=== PATIENT | male | born 1990 | race Caucasian/White ===

== ENCOUNTER 2017-04-03 20:20 | Emergency (ER) | payer OTHER ==
[2017-04-03 21:12] VITALS: BP 135/91
--- NOTE | 2017-04-03 21:54 | RAD ---
INDICATION: RIGHT hand and forearm pain. Pain at base of the thumb and radial aspect of the wrist radiating to the mid shaft of the forearm. Previous ORIF. COMPARISON: August 27, 2016 TECHNIQUE: AP, lateral, and oblique views RIGHT hand. AP and lateral views RIGHT hand. REPORT: Interference screw in place at the scaphoid. No persistent scaphoid fracture cleft visible. Bone graft harvest site at the distal metaphysis of the radius noted. Negative for acute fracture or articular malalignment at the wrist. Small chronic metallic foreign body within the soft tissues at the dorsal radial margin of the thumb at the level of the proximal phalanx. Normal articular alignment and preserved joint spaces at the hand. Negative for fracture. Mild soft tissue swelling at the second and third fingers. IMPRESSION: 1. Postsurgical change of ORIF at the scaphoid. No persistent fracture cleft evident. 2. No acute radiographic abnormality at the wrist or hand. 3. No significant arthropathic change evident at the wrist or hand.
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
== END 2017-04-03 22:24 | disposition home or self-care (01) ==
LOC: UCCORT 20:20
DX: S63.91XA Sprain of unspecified part of right wrist and hand, initial encounter (principal); F17.210 Nicotine dependence, cigarettes, uncomplicated; F12.90 Cannabis use, unspecified, uncomplicated; V19.3XXA Pedal cyclist (driver) (passenger) injured in unspecified nontraffic accident, initial encounter; Z91.030 Bee allergy status; Z91.048 Other nonmedicinal substance allergy status
CPT/HCPCS: 99211; G0463

== ENCOUNTER 2019-02-10 21:03 | Emergency (ER) | payer OTHER ==
[2019-02-10 22:24] LABS: ABS Lymphocytes 1.4 10^3/ul (1.0-4.8); ABS Monocytes 0.5 10^3/ul (0-0.8); ABS Neutrophils 6.6 10^3/ul (1.5-7.7); Eosinophil % 0.4 %; Hematocrit 47 % (42-52); Hemoglobin 16.1 g/dL (14.0-18.0); Mean Corpuscular HGB Conc 34 g/dL (31-36); Mean Corpuscular Hemoglobin 30 pg (27-31); Mean Corpuscular Volume 89 fL (80-94); Mean Platelet Volume 6.6 fL (7.4-10.4); Platelet Count 297 10^3/uL (150-450); Red Blood Count 5.34 10^6 /uL (4.18-5.48); Red Cell Distribution Width 13 % (10.5-15); White Blood Count 8.5 10^3/uL (3.5-10.8)
[2019-02-10 22:26] LABS: Urine Appearance Clear; Urine Bilirubin Negative (Negative); Urine Blood Negative (Negative); Urine Color Yellow; Urine Glucose Negative (Negative); Urine Ketones Negative (Negative); Urine Nitrite Negative (Negative); Urine Protein Negative (Negative); Urine Specific Gravity 1.005 (1.010-1.030); Urine Urobilinogen Negative (Negative)
[2019-02-10 22:38] LABS: ALT 20 U/L (7-52); AST 20 U/L (13-39); Albumin 4.7 g/dL (3.2-5.2); Albumin/Globulin Ratio 1.6 (1-3); Alkaline Phosphatase 55 U/L (34-104); Anion Gap 8 mmol/L (2-11); BUN/Creatinine Ratio 9.2 (8-20); Blood Urea Nitrogen 10 mg/dL (6-24); CO2 Carbon Dioxide 26 mmol/L (22-32); Calcium 9.8 mg/dL (8.6-10.3); Chloride 104 mmol/L (101-111); EGFR African American 96.1 (>60); EGFR Non-African American 79.4 (>60); Glucose 139 mg/dL (70-100); Potassium 3.7 mmol/L (3.5-5.0); Sodium 138 mmol/L (135-145); Total Protein 7.7 g/dL (6.4-8.9)
[2019-02-10 22:43] LABS: Urine Benzodiazepine Screen None Detected (None Detect); Urine Opiates Screen None Detected (None Detect)
[2019-02-10 22:51] LABS: Acetaminophen < 15 mcg/mL; Alcohol < 10 mg/dL (<10); Salicylate < 2.50 mg/dL (<30)
[2019-02-10 23:06] LABS: TSH (Thyroid Stimulating Horm) 1.31 mcIU/mL (0.34-5.60)
--- NOTE | 2019-02-11 00:16 | ED ---
Psychiatric Complaint - HPI Summary HPI Summary: Patient is a 28 y/o M presenting to ED under 941 status for MHE. Patient had been brought in after making suicidal and homicidal statements on Facebook. Per nurse's note, "Police office that brought pt in states pt made statements on facebook about blowing a truck and people up". In the room, when asked why the patient is here, he states, "one of my buddies got butt-hurt". Patient states that he has "dark humor" and had made jokes to his friend that he was "going to shoot people and blow shit up". Patient denies SI/HI as well as ETOH/drug usage. 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 He was a former aircraft quality control inspector. FMHx of HTN, cardiac disease, diabetes. Patient denies alcohol usage, endorses marijuana usage, and is a former smoker. On triage, pain is denied, nothing is noted to aggravate/alleviate Sx. Home medications and allergies are reviewed. - History Of Current Complaint Chief Complaint: EDMentalHealth Time Seen by Provider: 02/10/19 21:29 Hx Obtained From: Patient Onset/Duration: Resolved - patient reports no SI and HI. Timing: Constant Severity Currently: None - pain denied on triage Aggravating Factor(s): Nothing Alleviating Factor(s): Nothing Has Suicidal: Denies: Thoughts - PATIENT DENIES Has Homicidal: Denies: Thoughts - PATIENT DENIES - Allergies/Home Medications Allergies/Adverse Reactions: Allergies Allergy/AdvReac Type Severity Reaction Status Date / Time bee sting Allergy Swelling Uncoded 02/10/19 21:12 FABULOSA Allergy Rash Uncoded 02/10/19 21:12 PMH/Surg Hx/FS Hx/Imm Hx Endocrine/Hematology History: Denies: Hx Diabetes Cardiovascular History: Denies: Hx Hypertension, Other Cardiovascular Problems/Disorders History: Denies: Hx Renal Disease Sensory History: Denies: Hx Contacts or Glasses, Hx Hearing Aid Opthamlomology History: Denies: Hx Contacts or Glasses - Surgical History Surgery Procedure, Year, and Place: Right wrist ORIF Hx Anesthesia Reactions: No Infectious Disease History: No Infectious Disease History: Denies: Traveled Outside the [place] in Last 30 Days - Family History Known Family History: Positive: Cardiac Disease, Hypertension, Diabetes - Social History Alcohol Use: None Hx Substance Use: Yes Substance Use Type: Reports: Marijuana Hx Tobacco Use: Yes Smoking Status (MU): Former Smoker Amount Used/How Often: 5 CIGS PER DAY Have You Smoked in the Last Year: No Review of Systems Constitutional: Other - NEGATIVE - PATIENT DENIES ETOH/SUBSTANCE USAGE TODAY Negative: Fever Psychological: Other - PATIENT WAS BROUGHT IN FOR SI/HI BUT IN ROOM PATIENT DENIES HI AND SI All Other Systems Reviewed And Are Negative: Yes Physical Exam - Summary Physical Exam Summary: VITAL SIGNS: Reviewed. GENERAL: Patient is a well-developed and nourished male who is lying comfortable in the stretcher. Patient is not in any acute respiratory distress. HEAD AND FACE: No signs of trauma. No ecchymosis, hematomas or skull depressions. No sinus tenderness. EYES: PERRLA, EOMI x 2, No injected conjunctiva, no nystagmus. EARS: Hearing grossly intact. Ear canals and tympanic membranes are within normal limits. MOUTH: Oropharynx within normal limits. NECK: Supple, trachea is midline, no adenopathy, no JVD, no carotid bruit, no c- spine tenderness, neck with full ROM CHEST: Symmetric, no tenderness at palpation LUNGS: Clear to auscultation bilaterally. No wheezing or crackles. CVS: Regular rate and rhythm, S1 and S2 present, no murmurs or gallops appreciated. ABDOMEN: Soft, non-tender. No signs of distention. No rebound no guarding, and no masses palpated. Bowel sounds are normal. EXTREMITIES: FROM in all major joints, no edema, no cyanosis or clubbing. NEURO: Alert and oriented x 3. No acute neurological deficits. Speech is normal and follows commands. SKIN: Dry and warm Triage Information Reviewed: Yes Vital Signs On Initial Exam: Initial Vitals Temp Pulse Resp BP Pulse Ox 98.9 F 124 16 163/111 99 02/10/19 21:05 02/10/19 21:05 02/10/19 21:05 02/10/19 21:05 02/10/19 21:05 Vital Signs Reviewed: Yes Diagnostics - Vital Signs Vital Signs Temp Pulse Resp BP Pulse Ox 02/10/19 21:05 98.9 F 124 16 163/111 99 - Laboratory Lab Results: Lab Results 02/10/19 02/10/19 02/10/19 Range/Units 21:59 21:59 22:16 WBC 8.5 (3.5-10.8) 10^3/uL RBC 5.34 (4.18-5.48) 10^6 /uL Hgb 16.1 (14.0-18.0) g/dL Hct 47 (42-52) % MCV 89 (80-94) fL MCH 30 (27-31) pg MCHC 34 (31-36) g/dL RDW 13 (10.5-15) % Plt Count 297 (150-450) 10^3/uL MPV 6.6 L (7.4-10.4) fL Neut % (Auto) 77.4 % Lymph % (Auto) 16.0 % Harney % (Auto) 5.6 % Eos % (Auto) 0.4 % Baso % (Auto) 0.6 % Absolute Neuts (auto) 6.6 (1.5-7.7) 10^3/ul Absolute Lymphs (auto) 1.4 (1.0-4.8) 10^3/ul Absolute Monos (auto) 0.5 (0-0.8) 10^3/ul Absolute Eos (auto) 0.0 (0-0.6) 10^3/ul Absolute Basos (auto) 0.0 (0-0.2) 10^3/ul Absolute Nucleated RBC 0.0 10^3/ul Nucleated RBC % 0.0 Sodium (135-145) mmol/L Potassium (3.5-5.0) mmol/L Chloride (101-111) mmol/L Carbon Dioxide (22-32) mmol/L Anion Gap (2-11) mmol/L BUN (6-24) mg/dL Creatinine (0.67-1.17) mg/dL Est GFR ( Amer) (>60) Est GFR (Non-Af Amer) (>60) BUN/Creatinine Ratio (8-20) Glucose (70-100) mg/dL Calcium (8.6-10.3) mg/dL Total Bilirubin (0.2-1.0) mg/dL AST (13-39) U/L ALT (7-52) U/L Alkaline Phosphatase (34-104) U/L Total Protein (6.4-8.9) g/dL Albumin (3.2-5.2) g/dL Globulin (2-4) g/dL Albumin/Globulin Ratio (1-3) TSH (0.34-5.60) mcIU/mL Urine Color Yellow Urine Appearance Clear Urine pH 5.0 (5-9) Ur Specific Norvell 1.005 L (1.010-1.030) Urine Protein Negative (Negative) Urine Ketones Negative (Negative) Urine Blood Negative (Negative) Urine Nitrate Negative (Negative) Urine Bilirubin Negative (Negative) Urine Urobilinogen Negative (Negative) Ur Leukocyte Esterase Negative (Negative) Urine Glucose Negative (Negative) Salicylates (<30) mg/dL Urine Opiates Screen None detected (None Detect) Acetaminophen mcg/mL Ur Barbiturates Screen None detected (None Detect) Ur Phencyclidine Scrn None detected (None Detect) Ur Amphetamines Screen None detected (None Detect) U Benzodiazepines Scrn None detected (None Detect) Urine Cocaine Screen None detected (None Detect) U Cannabinoids Screen Presumptive positive A (None Detect) Serum Alcohol (<10) mg/dL 02/10/19 Range/Units 22:16 WBC (3.5-10.8) 10^3/uL RBC (4.18-5.48) 10^6 /uL Hgb (14.0-18.0) g/dL Hct (42-52) % MCV (80-94) fL MCH (27-31) pg MCHC (31-36) g/dL RDW (10.5-15) % Plt Count (150-450) 10^3/uL MPV (7.4-10.4) fL Neut % (Auto) % Lymph % (Auto) % Harney % (Auto) % Eos % (Auto) % Baso % (Auto) % Absolute Neuts (auto) (1.5-7.7) 10^3/ul Absolute Lymphs (auto) (1.0-4.8) 10^3/ul Absolute Monos (auto) (0-0.8) 10^3/ul Absolute Eos (auto) (0-0.6) 10^3/ul Absolute Basos (auto) (0-0.2) 10^3/ul Absolute Nucleated RBC 10^3/ul Nucleated RBC % Sodium 138 (135-145) mmol/L Potassium 3.7 (3.5-5.0) mmol/L Chloride 104 (101-111) mmol/L Carbon Dioxide 26 (22-32) mmol/L Anion Gap 8 (2-11) mmol/L BUN 10 (6-24) mg/dL Creatinine 1.09 (0.67-1.17) mg/dL Est GFR ( Amer) 96.1 (>60) Est GFR (Non-Af Amer) 79.4 (>60) BUN/Creatinine Ratio 9.2 (8-20) Glucose 139 H (70-100) mg/dL Calcium 9.8 (8.6-10.3) mg/dL Total Bilirubin 0.30 (0.2-1.0) mg/dL AST 20 (13-39) U/L ALT 20 (7-52) U/L Alkaline Phosphatase 55 (34-104) U/L Total Protein 7.7 (6.4-8.9) g/dL Albumin 4.7 (3.2-5.2) g/dL Globulin 3.0 (2-4) g/dL Albumin/Globulin Ratio 1.6 (1-3) TSH 1.31 (0.34-5.60) mcIU/mL Urine Color Urine Appearance Urine pH (5-9) Ur Specific Norvell (1.010-1.030) Urine Protein (Negative) Urine Ketones (Negative) Urine Blood (Negative) Urine Nitrate (Negative) Urine Bilirubin (Negative) Urine Urobilinogen (Negative) Ur Leukocyte Esterase (Negative) Urine Glucose (Negative) Salicylates < 2.50 (<30) mg/dL Urine Opiates Screen (None Detect) Acetaminophen < 15 mcg/mL Ur Barbiturates Screen (None Detect) Ur Phencyclidine Scrn (None Detect) Ur Amphetamines Screen (None Detect) U Benzodiazepines Scrn (None Detect) Urine Cocaine Screen (None Detect) U Cannabinoids Screen (None Detect) Serum Alcohol < 10 (<10) mg/dL Result Diagrams: 02/10/19 22:16 02/10/19 22:16 Lab Statement: Any lab studies that have been ordered have been reviewed, and results considered in the medical decision making process. Re-Evaluation - Re-Evaluation First Eval Re-Evaluation Time: 23:08 Comment: Patient is medically cleared for MHE. Course/Dx - Course Course Of Treatment: Patient is a 28 y/o M presenting to ED under 941 status for MHE. Patient had been brought in after making suicidal and homicidal statements on Facebook. Per nurse's note, "Police office that brought pt in states pt made statements on facebook about blowing a truck and people up". In the room, when asked why the patient is here, he states, "one of my buddies got butt-hurt". Patient states that he has "dark humor" and had made jokes to his friend that he was "going to shoot people and blow shit up". Patient denies SI/ HI as well as ETOH/drug usage. 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 He was a former aircraft quality control inspector. FMHx of HTN, cardiac disease, diabetes. Patient denies alcohol usage, endorses marijuana usage, and is a former smoker. Physical exam is unremarkable. Labs showed MPV 6.6, glucose 139, TSH 1.31. UA was negative. Urine tox screen showed cannabinoids presumptive positive. Patient is medically cleared for MHE. Patient's case was reviewed by Dr. Patel. Patient will be discharged to home. - Differential Dx/Clinical Impression Provider Diagnosis: Mood disorder - Physician Notifications Discussed Care Of Patient With: Phuc Patel Time Discussed With Above Provider: 02:02 Instructed by Provider To: Other - Patient's case was reviewed by Dr. Patel. Patient will be discharged to home. Discharge - Sign-Out/Discharge Documenting (check all that apply): Patient Departure - discharge Patient Received Moderate/Deep Sedation with Procedure: No - Discharge Plan Condition: Stable Disposition: HOME Referrals: Steven Rodriguez DO [Primary Care Provider] - - Attestation Statements Document Initiated by Scribe: Yes Documenting Scribe: SEBASTIEN FOUNTAIN Provider For Whom Scribe is Documenting (Include Credential): DONALDO FOURNIER MD Scribe Attestation: I, SEBASTIEN FOUNTAIN, scribed for DONALDO FOURNIER MD on 02/11/19 at 0249. Status of Scribe Document: Ready
[2019-02-11 02:18] VITALS: BP 146/82
== END 2019-02-11 02:17 | disposition home or self-care (01) ==
LOC: ED 21:03
DX: F39 Unspecified mood [affective] disorder (principal); Z87.891 Personal history of nicotine dependence
CPT/HCPCS: 36415; 80053; 80307; 80320; 80329; 81003; 84443; 85025; 99285; G0480